=== PATIENT | female | born 1980 | race Asian ===

== ENCOUNTER 2019-05-13 12:05 | Observation (INO) | payer OTHER | END 2019-05-13 13:00 | disposition home or self-care (01) | LOC: SPU 12:05 | PROVIDERS: ADMIT Obstetrics & Gynecology; ATTEND Obstetrics & Gynecology | DX: O36.8130 Decreased fetal movements, third trimester, not applicable or unspecified (principal); Z3A.32 32 weeks gestation of pregnancy | CPT/HCPCS: G0378 ==